=== PATIENT | male | born 1985 | race Caucasian/White ===

== ENCOUNTER 2020-05-06 11:22 | Emergency (ER) | payer OTHER, SELFPAY ==
--- NOTE | ~2020-05-06 | XR_ITS ---
XR ankle RT min 3V 05/06/2020 12:16 INDICATION: Right ankle pain PROCEDURE: 4 views right ankle COMPARISON: No prior studies for comparison. FINDINGS: Fracture, dislocation or subluxation is not identified. Ankle mortise intact. The soft tiss ues appear within normal limits. No foreign bodies are identified. IMPRESSION: 1: NO ACUTE BONE OR JOINT ABNORMALITY IDENTIFIED. Reviewed, dictated and finalized at location [facility]
[2020-05-06 11:28] VITALS: BP 115/78; PULSE 98; RESP 22; TEMP 36.1; O2SAT 100
--- NOTE | 2020-05-06 11:28 | ED.LOWEXIN ---
HPI - Extremity Injury (Lower) General Chief Complaint: Extremity Injury, Lower Stated Complaint: ankle pain Time Seen by Provider: 05/06/20 11:28 History of Present Illness HPI Narrative: Previously healthy male presents from home for an ankle injury. He missed the last step and rolled his right ankle. He has moderate pain and anterior ankle swelling. He also sustained a small abrasion over the lateral foot. No other pain or injury. Related Data Home Medications Medication Instructions Recorded Confirmed No Home Medications 05/06/20 05/06/20 Allergies Allergy/AdvReac Type Severity Reaction Status Date / Time No Known Allergies Allergy Unverified 06/20/14 15:42 Review of Systems Review of Systems: All systems reviewed & are unremarkable except as noted in HPI and below Constitutional: Constitutional: Denies fever(s) and Denies weakness Cardiovascular: Cardiovascular: Denies chest pain Respiratory: Respiratory: Denies dyspnea Gastrointestinal: Gastrointestinal: Denies nausea Musculoskeletal: Musculoskeletal: Denies back pain Neurologic: Denies numbness and Denies weakness [facility] Past Medical History Medical History (Updated 05/06/20 @ 12:37 by Marco Manning MD) Healthy adult Social History Social History (Updated 05/06/20 @ 11:49 by Marco Manning MD) Smoking status: Never smoker Exam Const: General: healthy appearing, no acute distress and alert Orientation/consciousness: patient oriented x3 HENMT: Head: normal to inspection Resp: Effort & Inspection: normal respiratory effort Cardio: Other: 2+ right DP Skin: General skin exam: normal color Other: minimal abrasion over lateral part of right foot Neuro: General: patient oriented x3, moves all extremities, no focal motor deficits and CN's II-XI intact bilaterally Speech: normal speech Extrem: Other: Tenderness and Moderate swelling to right lateral maleolus and anterior ankle Psych: Appearance: grossly normal and well kempt Mental Status: mental status grossly normal Affect: normal affect Course Vital Signs Vital signs: Vital Signs Temperature 36.1 C L 05/06/20 11:28 Pulse Rate 98 05/06/20 11:28 Respiratory Rate 22 H 05/06/20 11:28 Blood Pressure 115/78 05/06/20 11:28 Pulse Oximetry 100 05/06/20 11:28 Temperature 36.1 C L 05/06/20 11:28 Pulse Rate 98 05/06/20 11:28 Respiratory Rate 22 H 05/06/20 11:28 Blood Pressure 115/78 05/06/20 11:28 Pulse Oximetry 100 05/06/20 11:28 MDM - Extremity Injury (Lower) Imaging Data Radiologist's impression: ITS Impressions Ankle X-Ray 05/06/20 12:17 IMPRESSION: 1: NO ACUTE BONE OR JOINT ABNORMALITY IDENTIFIED. Discharge Plan Discharge Clinical Impression: Right ankle sprain Qualifiers: Encounter type: initial encounter Involved ligament of ankle: unspecified ligament Qualified Code(s): S93.401A - Sprain of unspecified ligament of right ankle, initial encounter Patient Disposition: Home, Self-Care Condition: Stable Instructions: Ankle Sprain (ED) Prescriptions: No Action No Home Medications RF: 0 Follow-up/Referrals: Sheba Alfonso MD [Physician] - PHYSICIAN,TEXTILE TECHNOLOGIST [Primary Care Provider] -
[2020-05-06 13:16] VITALS: BP 101/72; PULSE 69; RESP 18; TEMP 37.1; O2SAT 99
== END 2020-05-06 13:17 | disposition home or self-care (01) ==
PROVIDERS: Emergency Provider Emergency Medicine
DX: S93.401A Sprain of unspecified ligament of right ankle, initial encounter (principal); X50.9XXA Other and unspecified overexertion or strenuous movements or postures, initial encounter
CPT/HCPCS: 73610; 99283